=== PATIENT | male | born 1960 | race African-American/Black ===

== ENCOUNTER → 2018-06-28 | Outpatient (CLI) | payer BC ==
--- NOTE | 2018-06-28 09:32 | PCVCIMAG ---
EXAM: AORTOILIAC DUPLEX INDICATION: Couple abdominal aorta. FINDINGS: AORTA: Suprarenal aorta measures maximum diameter of 2.9 cm. There is an early fusiform infrarenal aortic aneurysm. The infrarenal aorta measures maximum diameter of 2.9 cm. No aortic stenosis. RIGHT COMMON ILIAC ARTERY: Maximum diameter is 1.6 cm. No significant stenosis. RIGHT EXTERNAL ILIAC ARTERY: No significant stenosis. LEFT COMMON ILIAC ARTERY: Maximum diameter is 1.7 cm. No significant stenosis. LEFT EXTERNAL ILIAC ARTERY: No significant stenosis. IMPRESSION: Early infrarenal abdominal aortic aneurysm measuring 2.9 cm in greatest dimension. Interval follow-up is suggested in one year. LOC:[id number]
--- NOTE | 2018-06-28 11:41 | PCVCIMAG ---
APPROVED REPORT Study performed: 06/28/2018 09:33:15 EXAM: Comprehensive 2D, Doppler, and color-flow Echocardiogram Patient Location: Echo lab Status: routine BSA: 2.63 HR: 57 bpmBP: 122/74 mmHg Rhythm: NSR Other Information Study Quality: Technically Difficult Risk Factors: Cardiac Risk Factors: HTN, Hyperlipidemia, DM, Smoking Indications CAD ST elevation myocardial infarction. Stent Left Ventricle normal LV size LVEF is 50%. inf wall hypo has moctly resoved <Conclusion> 1.LVEF is 50%. inf wall hypo has moctly resolved 2.normal valve structures 3. no effusion
== END | disposition home or self-care (01) ==
LOC: PCVCIMAG 08:44
PROVIDERS: ATTEND Internal Medicine Cardiovascular Disease
DX: I71.4 Abdominal aortic aneurysm, without rupture (principal); I25.10 Atherosclerotic heart disease of native coronary artery without angina pectoris; I10 Essential (primary) hypertension; E78.5 Hyperlipidemia, unspecified; E11.9 Type 2 diabetes mellitus without complications; I21.19 ST elevation (STEMI) myocardial infarction involving other coronary artery of inferior wall; R09.89 Other specified symptoms and signs involving the circulatory and respiratory systems
CPT/HCPCS: 93308; 93978